=== PATIENT | male | born 1970 | race Hispanic/Latino ===

== ENCOUNTER 2021-07-25 11:40 | Emergency (ER) | payer MEDICARE ==
[~2021-07-25] VITALS: Ht 165.1 cm; Wt 108.9 kg
[2021-07-25 13:25] LABS: CLARITY,URINE CLEAR (CLEAR); COLOR,URINE YELLOW (YELLOW)
[2021-07-25 13:26] LABS: KETONES,URINE NEGATIVE (NEGATIVE); LEUKOCYTE ESTERASE ,URINE NEGATIVE (NEGATIVE); NITRITE,URINE NEGATIVE (NEGATIVE); PROTEIN,URINE DIPSTICK NEGATIVE (NEGATIVE); URINE UROBILINOGEN 0.2 mg/dL (0.2 - 1)
[2021-07-25 13:32] LABS: BACTERIA,URINE RARE /HPF; EPITHELIAL CELLS,URINE RARE /LPF; RBC,URINE 0-5 /HPF (0-5); WBC,URINE (MAN) 0-5 /HPF (0-5)
[2021-07-25 14:42] VITALS: BP 133/79
== END 2021-07-25 14:44 | disposition home or self-care (01) ==
LOC: ER 11:45
DX: R42 Dizziness and giddiness (principal); R53.1 Weakness
CPT/HCPCS: 70360; 71046; 72170; 74018; 81001; 87086; 99283

== ENCOUNTER 2021-11-01 11:01 | Emergency (ER) | payer MEDICARE, OTHER ==
[~2021-11-01] VITALS: Ht 165.1 cm; Wt 108.9 kg
[2021-11-01] MEDS ORDERED: DONNATAL/LIDOCAINE/MAALOX 30 ML SUSP PO STA (11:12)
[2021-11-01] MEDS ORDERED: LIDOCAINE VISC 2% SOLN 15 ML UDC ONE (11:32)
[2021-11-01] MEDS ORDERED: BELLADONNA ALK/PHENOBARBITAL 5 ML UDC ONE (11:33)
[2021-11-01] MEDS ORDERED: MAGNESIUM/ALUMINUM/SIMETHICONE 30 ML UDC ONE (11:33)
[2021-11-01] MEDS ORDERED: OMEPRAZOLE40 MG PO (13:47)
== END 2021-11-01 13:59 | disposition home or self-care (01) ==
LOC: ER 11:05
DX: R13.10 Dysphagia, unspecified (principal); R09.89 Other specified symptoms and signs involving the circulatory and respiratory systems; I10 Essential (primary) hypertension; E11.9 Type 2 diabetes mellitus without complications; J45.909 Unspecified asthma, uncomplicated; E07.9 Disorder of thyroid, unspecified
CPT/HCPCS: 70360; 71045; 99283